=== PATIENT | female | born 1930 | race Caucasian/White ===

== ENCOUNTER 2016-12-13 14:37 | Emergency (ER) | payer MEDICARE, MEDICAID ==
[~2016-12-13] VITALS: Ht 149.9 cm; Wt 62.6 kg
--- NOTE | 2016-12-13 14:40 | NUR ---
BIB SON FROM HOME FOR EVALUATION DT SP FELL AROUND 1000 TODAY. PATIENT ARRIVED, AAO4. APPEARS IN NO APPARENT DISTRESS, HOWEVER PATIENT NOTED WITH LEFT EYE PAIN, 6/10, WITH PURPLISH DISCOLORATION. PATIENT IS UNABLE TO OPEN LEFT EYE DUE TO SWELLING. PATIENT'S SKIN IS WARM TO TOUCH AND NON DIAPHORETIC. PT IS AFEBRILE. VSS. GOWNED PT AND PLACED ON TELE MONITOR.
--- NOTE | 2016-12-13 14:48 | NUR ---
EKG IN PROGRESS
[2016-12-13 15:32] LABS: BASOPHILS % (AUTO) 0.3 % (0.0-2.0); EOSINOPHILS # (AUTO) 0.1 /CMM (0.0-0.7); EOSINOPHILS % (AUTO) 1.2 % (0.0-6.0); HEMATOCRIT 31 % (33-45); LYMPHOCYTES # (AUTO) 1.9 /CMM (0.8-4.8); LYMPHOCYTES % (AUTO) 31.8 % (20.0-44.0); MEAN CORPUSCULAR HEMOGLOBIN 27 PG (26.0-33.0); MEAN CORPUSCULAR HGB CONC 33 g/dl (31.0-36.0); MEAN CORPUSCULAR VOLUME 82 fL (82-100); MONOCYTES # (AUTO) 0.6 /CMM (0.1-1.30); MONOCYTES % (AUTO) 10.5 % (2.0-12.0); NEUTROPHILS # (AUTO) 3.4 /CMM (1.8-8.9); NEUTROPHILS % (AUTO) 56.2 % (43.0-81.0); PLATELET COUNT (AUTO) 227 /CMM (150-450); RDW COEFFICIENT OF VARIATION 13.4 (11.5-15.0); RED BLOOD CELL COUNT(AUTO) 3.74 MIL/uL (4.0-5.2)
--- NOTE | 2016-12-13 15:33 | NUR ---
PATIENT LEFT FOR CT WITH EMT, NO COMPLAINTS OR CHANGES OF CONDITION
[2016-12-13 15:45] LABS: CALCIUM, SERUM 9.4 mg/dL (8.5-10.1); CARBON DIOXIDE 27 mmol/L (21-32); CHLORIDE 104 mmol/L (98-107); GLUCOSE 151 mg/dL (74-106); POTASSIUM 4.4 mmol/L (3.5-5.1); SODIUM SERUM 139 mmol/L (136-145); UREA NITROGEN, BLOOD 34 mg/dL (7-18)
[2016-12-13 15:47] LABS: INR 0.92 (0.87-1.13); PROTHROMBIN TIME 9.6 SECS (9.5-12.7)
[2016-12-13 15:53] LABS: ALANINE AMINOTRANSFERASE 17 U/L (12-78); ALBUMIN 3.5 g/dL (3.4-5.0); ALKALINE PHOSPHATASE 45 U/L (46-116); ASPARTATE AMINOTRANSFERASE 15 U/L (15-37); BILIRUBIN,TOTAL 0.2 mg/dL (0.2-1.0)
[2016-12-13 16:17] VITALS: BP 12/72
--- NOTE | 2016-12-13 16:17 | NUR ---
Patient discharged to home in stable condition. Written and verbal after care instructions given. Patient verbalizes understanding of instruction.
== END 2016-12-13 16:17 | disposition home or self-care (01) ==
LOC: ER 14:41
DX: S05.12XA Contusion of eyeball and orbital tissues, left eye, initial encounter (principal); D64.9 Anemia, unspecified; D32.9 Benign neoplasm of meninges, unspecified; R39.2 Extrarenal uremia; I10 Essential (primary) hypertension; E11.8 Type 2 diabetes mellitus with unspecified complications; H54.42 Blindness, left eye, normal vision right eye; W01.10XA Fall on same level from slipping, tripping and stumbling with subsequent striking against unspecified object, initial encounter; Y93.89 Activity, other specified; Y92.89 Other specified places as the place of occurrence of the external cause; Y99.8 Other external cause status
CPT/HCPCS: 36415; 70450; 70486; 73030; 73110; 80048; 80076; 85025; 85730; 93005; 99285; A4606; Z7610

== ENCOUNTER 2017-01-29 19:14 | Emergency (ER) | payer MEDICARE, MEDICAID ==
[~2017-01-29] VITALS: Ht 152.4 cm; Wt 64.9 kg
--- NOTE | 2017-01-29 19:16 | NUR ---
86 YO FEMALE BB FAMILY. PT IS ALERT X 3, C/O CHEST PAIN. PT GOWNED, PLACED ON NETWORK FIREWALL ENGINEER. SKIN WARM AND DRY, RR EVEN AND UNLABORED. AWAITING ORDERS FROM PROVIDER AWAITING ORDERS FROM PROVIDER
--- NOTE | 2017-01-29 19:30 | NUR ---
20G RIGHT HAND IV STARTED, BLOOD SAMPLE OBTAINED AND SENT TO LAB
[2017-01-29 19:37] LABS: BASOPHILS % (AUTO) 0.6 % (0.0-2.0); EOSINOPHILS # (AUTO) 0.1 /CMM (0.0-0.7); EOSINOPHILS % (AUTO) 1.3 % (0.0-6.0); HEMATOCRIT 33 % (33-45); HEMOGLOBIN 11.1 g/dL (11.5-14.8); LYMPHOCYTES # (AUTO) 2.5 /CMM (0.8-4.8); LYMPHOCYTES % (AUTO) 37.8 % (20.0-44.0); MEAN CORPUSCULAR HEMOGLOBIN 28 PG (26.0-33.0); MEAN CORPUSCULAR HGB CONC 34 g/dl (31.0-36.0); MEAN CORPUSCULAR VOLUME 81 fL (82-100); MONOCYTES # (AUTO) 0.7 /CMM (0.1-1.30); MONOCYTES % (AUTO) 10.4 % (2.0-12.0); NEUTROPHILS # (AUTO) 3.4 /CMM (1.8-8.9); NEUTROPHILS % (AUTO) 49.9 % (43.0-81.0); PLATELET COUNT (AUTO) 246 /CMM (150-450); RDW COEFFICIENT OF VARIATION 14.4 (11.5-15.0); RED BLOOD CELL COUNT(AUTO) 4.01 MIL/uL (4.0-5.2); WHITE BLOOD COUNT (AUTO) 6.7 K/uL (4.3-11.0)
[2017-01-29] MEDS ORDERED: ONDANSETRON HCL/PF 4 MG/2 ML VIAL ONE (19:37)
[2017-01-29] MEDS ORDERED: MORPHINE SULFATE INJ 2 MG/ML DISP.SYRIN ONE (19:37)
[2017-01-29 19:43] LABS: CALCIUM, SERUM 9.3 mg/dL (8.5-10.1); CARBON DIOXIDE 24 mmol/L (21-32); CHLORIDE 104 mmol/L (98-107); CREATININE 1.2 mg/dL (0.6-1.3); GLUCOSE 68 mg/dL (74-106); POTASSIUM 4.4 mmol/L (3.5-5.1); SODIUM SERUM 137 mmol/L (136-145); UREA NITROGEN, BLOOD 35 mg/dL (7-18)
[2017-01-29 19:50] LABS: TROPONIN I < 0.017 ng/mL (0.00-0.056)
[2017-01-29 19:52] LABS: D-DIMER 0.56 mg/L(FEU (0.17-0.50); INR 0.93 (0.87-1.13); PROTHROMBIN TIME 9.9 SECS (9.5-12.7)
[2017-01-29 19:54] LABS: ALANINE AMINOTRANSFERASE 20 U/L (12-78); ALBUMIN 3.9 g/dL (3.4-5.0); ALKALINE PHOSPHATASE 50 U/L (46-116); ASPARTATE AMINOTRANSFERASE 18 U/L (15-37); B-TYPE NATRIURETIC PEPTIDE 171 PG/ML (0-125); BILIRUBIN,DIRECT 0.1 mg/dL (0.0-0.2); BILIRUBIN,TOTAL 0.3 mg/dL (0.2-1.0); TOTAL PROTEIN, SERUM 7.8 g/dL (6.4-8.2)
[2017-01-29] MEDS ORDERED: MORPHINE SULFATE INJ 2 MG/ML DISP.SYRIN IV ONE (20:00)
[2017-01-29] MEDS ORDERED: ONDANSETRON HCL/PF 4 MG/2 ML VIAL IVP ONE (20:00)
[2017-01-29] MEDS ORDERED: IV NS 0.9% 500 ML BAG IV ONE (20:00)
[2017-01-29] MEDS ORDERED: CT SWABBABLE VALVE TRANS SET 1 EA INFUS.SET MC ONE (20:38)
[2017-01-29] MEDS ORDERED: IOHEXOL-350 100 ML VIAL IV ONE (20:38)
[2017-01-29] MEDS ORDERED: IV NS 0.9% 250 ML IV ONE (20:38)
--- NOTE | 2017-01-29 21:02 | NUR ---
PT TRANSPORTED TO CT VIA GURNEY BY RADIOLOGY TEAM
[2017-01-29 22:04] VITALS: BP 116/65
--- NOTE | 2017-01-29 22:04 | NUR ---
Patient discharged to home in stable condition. Written and verbal after care instructions given. Patient verbalizes understanding of instruction.IV removed. Catheter intact and site benign. Pressure and 4x4 applied to site. No bleeding noted. PT ambulatory with a steady gait VITAL SIGNS WITHIN NORMAL LIMITS.
== END 2017-01-29 22:04 | disposition home or self-care (01) ==
LOC: ER 19:16
DX: R07.9 Chest pain, unspecified (principal); E11.9 Type 2 diabetes mellitus without complications; I10 Essential (primary) hypertension
CPT/HCPCS: 36415; 71010-TC; 80048-TC; 80076-TC; 83880; 84484-TC; 85025-TC; 85378-TC; 85730-TC; A4606; J2270; J2405; J7040; J7050; Q9967; Z7610

== ENCOUNTER 2018-11-05 16:26 | Outpatient (CLI) | payer MEDICARE, MEDICAID ==
[2018-11-05] MEDS ORDERED: IOHEXOL-300 100 ML VIAL IV ONE (16:42)
== END 2018-11-05 23:59 | disposition home or self-care (01) ==
LOC: CT 16:26
DX: K86.2 Cyst of pancreas (principal); K76.0 Fatty (change of) liver, not elsewhere classified; N85.8 Other specified noninflammatory disorders of uterus; R19.5 Other fecal abnormalities; I70.8 Atherosclerosis of other arteries; M47.817 Spondylosis without myelopathy or radiculopathy, lumbosacral region
CPT/HCPCS: 74177; Q9967

== ENCOUNTER 2020-02-15 15:25 | Emergency (ER) | payer MEDICARE, OTHER ==
[~2020-02-15] VITALS: Ht 149.9 cm; Wt 59.0 kg
[2020-02-15 15:25] VITALS: BP 148/73
--- NOTE | 2020-02-15 16:02 | NUR ---
patient is mother of our Julien EMT ,c/c constipation prep for rectal exam by Dr. Beyer , keep patient clean and dry
--- NOTE | 2020-02-15 16:24 | NUR ---
Patient discharged to home in stable condition. Written and verbal after care instructions given. Patient verbalizes understanding of instruction.
== END 2020-02-15 16:24 | disposition home or self-care (01) ==
LOC: ER 15:38
DX: K59.00 Constipation, unspecified (principal); I10 Essential (primary) hypertension; E11.9 Type 2 diabetes mellitus without complications; Z98.890 Other specified postprocedural states

== ENCOUNTER 2020-05-28 13:39 | Emergency (ER) | payer MEDICARE, OTHER ==
[~2020-05-28] VITALS: Ht 149.9 cm; Wt 61.2 kg
--- NOTE | 2020-05-28 14:05 | NUR ---
PT BIB SON C/O ABD PAIN 5/10 ALSO COMPLAINS OF CONSTIPATION. VS CHECKED. AWAITING MD MENDOZA.
[2020-05-28] MEDS ORDERED: MINERAL OIL 133 ML (PYXIS) 1 EA ENEMA RC ONE (14:06)
[2020-05-28] MEDS ORDERED: LACTULOSE 10 G/15 ML UDC (PYXIS) ONE ×2 (14:06→14:07)
[2020-05-28] MEDS: LACTULOSE 10 G/15 ML UDC (PYXIS) PO ONE (14:15)
[2020-05-28] MEDS: MINERAL OIL 133 ML (PYXIS) 1 EA ENEMA RC ONE (14:15)
--- NOTE | 2020-05-28 14:15 | NUR ---
MEDS ADMINISTERED ORDERED.
[2020-05-28] MEDS ORDERED: HYDR-3980 PO (14:32)
[2020-05-28] MEDS ORDERED: FERR325T24 PO (14:32)
[2020-05-28] MEDS ORDERED: ONDA-97 PO (14:32)
[2020-05-28] MEDS ORDERED: OMEP40CA13 PO (14:32)
[2020-05-28] MEDS ORDERED: METF-441 PO (14:32)
[2020-05-28] MEDS ORDERED: GABA300C PO (14:32)
[2020-05-28] MEDS ORDERED: GLIM4TAB37 PO (14:32)
[2020-05-28] MEDS ORDERED: SITA100T PO (14:32)
[2020-05-28] MEDS ORDERED: LOSA1TAB36 PO (14:32)
[2020-05-28] MEDS ORDERED: FURO20TA4 PO (14:32)
--- NOTE | 2020-05-28 14:35 | NUR ---
PATIENT HAD A LARGE BOWEL MOVEMENT. PERICARE PROVIDED.
--- NOTE | 2020-05-28 16:12 | NUR ---
PT FEELING MUCH BETTER. DISCHARGE HOME W/ FAMILY IN STABLE CONDITION.
[2020-05-28 16:13] VITALS: BP 122/74
[2020-05-30] MEDS ORDERED: DORZ10DR11 EACHEYE (15:27)
== END 2020-05-28 16:14 | disposition home or self-care (01) ==
LOC: ER 13:52
DX: K59.00 Constipation, unspecified (principal); K62.89 Other specified diseases of anus and rectum; I10 Essential (primary) hypertension; E11.9 Type 2 diabetes mellitus without complications; Z98.890 Other specified postprocedural states; Z79.899 Other long term (current) drug therapy; Z79.84 Long term (current) use of oral hypoglycemic drugs

== ENCOUNTER 2020-05-30 14:33 | Inpatient (IN) | payer MEDICARE, OTHER ==
[~2020-05-30] VITALS: Ht 144.8 cm; Wt 53.5 kg
[~2020-05-30 14:33] MED LIST: FERR325T24 PO; FURO20TA4 PO; GABA300C PO; GLIM4TAB37 PO; HYDR-3980 PO; LOSA1TAB36 PO; METF-441 PO; OMEP40CA13 PO; ONDA-97 PO; SITA100T PO
--- NOTE | 2020-05-30 14:51 | NUR ---
PT SEEN AND EXAMINED BY .
--- NOTE | 2020-05-30 15:05 | NUR ---
IV LINE ESTABLISHED BLOOD DRAWN AND SENT TO LAB.
[2020-05-30] MEDS ORDERED: DORZ10DR11 RIGHTEYE (15:27)
[2020-05-30] MEDS ORDERED: MEGE40TA5 PO (15:27)
[2020-05-30] MEDS ORDERED: PRED5DRO17 LEFTEYE (15:27)
[2020-05-30] MEDS ORDERED: IV NS 0.9% 500 ML BAG IV ONE ×2 (15:30→17:00)
--- NOTE | 2020-05-30 15:40 | NUR ---
URINE SPECIMEN COLLECTED AND SENT TO LAB.
[2020-05-30 15:46] LABS: CALCIUM, SERUM 8.9 mg/dL (8.5-10.1); CARBON DIOXIDE 20 mmol/L (21-32); CHLORIDE 106 mmol/L (98-107); CREATININE 2.2 mg/dL (0.6-1.3); GLUCOSE 217 mg/dL (74-106); POTASSIUM 4.2 mmol/L (3.5-5.1); SODIUM SERUM 140 mmol/L (136-145); UREA NITROGEN, BLOOD 70 mg/dL (7-18)
[2020-05-30 15:53] LABS: ALANINE AMINOTRANSFERASE 12 U/L (12-78); ALBUMIN 3.3 g/dL (3.4-5.0); ALKALINE PHOSPHATASE 45 U/L (46-116); ASPARTATE AMINOTRANSFERASE 11 U/L (15-37); BASOPHILS % (AUTO) 0.2 % (0.0-2.0); BILIRUBIN,TOTAL 0.2 mg/dL (0.2-1.0); EOSINOPHILS % (AUTO) 0.7 % (0.0-6.0); HEMATOCRIT 27 % (33-45); HEMOGLOBIN 8.8 g/dL (11.5-14.8); LYMPHOCYTES # (AUTO) 1.8 /CMM (0.8-4.8); LYMPHOCYTES % (AUTO) 23.9 % (20.0-44.0); MEAN CORPUSCULAR HGB CONC 32 g/dl (31.0-36.0); MEAN CORPUSCULAR VOLUME 92 fL (82-100); MONOCYTES # (AUTO) 0.8 /CMM (0.1-1.30); MONOCYTES % (AUTO) 10.4 % (2.0-12.0); NEUTROPHILS # (AUTO) 4.8 /CMM (1.8-8.9); NEUTROPHILS % (AUTO) 64.8 % (43.0-81.0); PLATELET COUNT (AUTO) 276 /CMM (150-450); RED BLOOD CELL COUNT(AUTO) 2.96 MIL/uL (4.0-5.2); TOTAL PROTEIN, SERUM 7.2 g/dL (6.4-8.2); WHITE BLOOD COUNT (AUTO) 7.4 K/uL (4.3-11.0)
[2020-05-30 16:10] LABS: COLOR,URINE BROWN (YELLOW)
[2020-05-30 16:14] LABS: BACTERIA,URINE 4+ /HPF (None Seen); RBC,URINE TOO NUMEROUS TO COUN /HPF (0-2); SQUAMOUS EPITHELIAL CELL,UR 0-2 /HPF (None Seen); WBC,URINE 81-100 /HPF (0-3)
[2020-05-30] MEDS ORDERED: CEFTRIAXONE 1GM BAG (ER ONLY) 50 ML IV ONE (16:26)
[2020-05-30] MEDS ORDERED: CEFTRIAXONE 1 G in IV D5W 50 ML IV ONE (16:30)
--- NOTE | 2020-05-30 16:35 | NUR ---
NURSING SUP GAVE M/S BED 104-1.
--- NOTE | 2020-05-30 17:00 | NUR ---
PAGED [facility].
--- NOTE | 2020-05-30 17:13 | NUR ---
COVID SPECIMEN OBTAINED AND SENT TO LAB.
[2020-05-30] MEDS ORDERED: TYLENOL COD PO (17:38)
--- NOTE | 2020-05-30 17:44 | NUR ---
REPORT GIVEN TO ROBBY FOURNIER FOR JONAS.
[2020-05-30] MEDS ORDERED: MAGNESIUM HYDROXIDE 30 ML UDC PO PRN (18:00)
[2020-05-30] MEDS ORDERED: Z GUARD REMEDY 2 OZ OINT TP PRN (18:00)
[2020-05-30] MEDS ORDERED: ONDANSETRON HCL/PF 4 MG/2 ML VIAL IVP PRN (18:00)
[2020-05-30] MEDS ORDERED: MAG HYDROX/AL HYDROX/SIMETH 30 ML UDC PO PRN (18:00)
[2020-05-30] MEDS ORDERED: ACETAMINOPHEN 325 MG TABLET PO PRN (18:00)
--- NOTE | 2020-05-30 18:34 | NUR ---
AT BEDSIDE FOR EVAL.
--- NOTE | 2020-05-30 18:54 | NUR ---
RECEIVED PATIENT FROM ER. PATIENT COMFORTABLE IN BED AT THIS TIME, SAFETY MEASURES IMPLEMENTED, BED IN LOWEST POSITION, LOCKED, SIDE RAILS UP, CALL LIGHT WITHIN REACH. ENDORSED TO ROBBY GONZALEZ FOR CONTINUITY OF CARE. WILL GIVE REPORT TO ONCOMING RN TO COMPLETE ADMISSION AND CONTINUE CARE.
[2020-05-30 20:00] VITALS: BP 159/76
--- NOTE | 2020-05-30 20:00 | NUR ---
MS NOTE RECEIVED PT IN BED, BREATHING EVEN AND UNLABORED WITH NO SOB OR ACUTE DISTRESS NOTED. A/OX2 . DENIES ANY PAIN OR DISCOMFORT. RFA IV SITE PATENT. BED IN LOWEST POSITION. CALL LIGHT WITHIN REACH. SRX2 UP. ALL NEEDS RENDERED.
[2020-05-30] MEDS: IV NS 0.9% 1,000 ML IV PRN (20:09)
--- NOTE | 2020-05-30 20:23 | NUR ---
MS ATTENDANT CHILD ACTIVITY NOTE ADMITTED A 89YR OLD PT. FULL CODE.NKA. ADMITTING DIAGNOSIS OF UTI. PMH OF LEFT EYE BLINDNESS, DM, HTN, OSTEOARTHRITIS, CONSTIPATION AND SPINAL STENOSIS. PT A/0 X2. FARSI SPEAKING. SON BY BEDSIDE. BREATHING EVEN AND UNLABORED WITH NO SOB OR ACUTE DISTRESS NOTED. RFA 18 IV PATENT AND INTACT. IV FLUIDS INFUSING WELL. KEPT CLEAN AND DRY. ALL NEEDS RENDERED. SRX2 UP. BED IN LOWEST POSITION. WILL CONTINUE TO MONITOR.
--- NOTE | 2020-05-30 21:30 | NUR ---
ms rn note Called MD to inform about vte score of 3. awaiting call back.
--- NOTE | 2020-05-31 00:16 | NUR ---
MS RN NOTE ASKED SON IF PT EVER GOT HER FLU VACCINE AND PNA VACCINE. PER SON, PT RECEIVED IT LAST YEAR. ASKED IF HE WANTED NURSE TO GIVE THEM, SON STATED, HE WILL ASK PT IN AM.
[2020-05-31] MEDS: ZOLPIDEM TARTRATE 5 MG TABLET PO PRN ×2 (01:01→20:48)
[2020-05-31 04:00] VITALS: BP 180/85
[2020-05-31 05:54] LABS: BASOPHILS % (AUTO) 0.2 % (0.0-2.0); EOSINOPHILS % (AUTO) 0.6 % (0.0-6.0); HEMATOCRIT 27 % (33-45); HEMOGLOBIN 8.6 g/dL (11.5-14.8); LYMPHOCYTES # (AUTO) 1.9 /CMM (0.8-4.8); LYMPHOCYTES % (AUTO) 25.4 % (20.0-44.0); MEAN CORPUSCULAR HGB CONC 32 g/dl (31.0-36.0); MEAN CORPUSCULAR VOLUME 92 fL (82-100); MONOCYTES # (AUTO) 0.7 /CMM (0.1-1.30); MONOCYTES % (AUTO) 9.8 % (2.0-12.0); NEUTROPHILS # (AUTO) 4.9 /CMM (1.8-8.9); PLATELET COUNT (AUTO) 235 /CMM (150-450); WHITE BLOOD COUNT (AUTO) 7.6 K/uL (4.3-11.0)
--- NOTE | 2020-05-31 05:59 | NUR ---
MS RN NOTE PATIENT NOTED WITH 181/[address] JUDGE. LEFT A MESSAGE. AWAITING CALL BACK.
--- NOTE | 2020-05-31 06:05 | NUR ---
MS RN NOTE PATIENT NOTED TO BE MOANING AND COMPLAINING OF PAIN. PT UNABLE TO RATE PAIN. OFFERED PAIN MEDICATION. PT REFUSE TO TAKE PAIN MEDICATION. SON BY BEDSIDE AND EXPLAINED USE OF PAIN MEDICATION. PT AGREED TO HAVE PAIN MEDICATION.
[2020-05-31 06:12] LABS: ALANINE AMINOTRANSFERASE 11 U/L (12-78); ALKALINE PHOSPHATASE 42 U/L (46-116); ASPARTATE AMINOTRANSFERASE 10 U/L (15-37); BILIRUBIN,TOTAL 0.2 mg/dL (0.2-1.0); CALCIUM, SERUM 8.3 mg/dL (8.5-10.1); CARBON DIOXIDE 22 mmol/L (21-32); CHLORIDE 110 mmol/L (98-107); CREATININE 1.5 mg/dL (0.6-1.3); GLUCOSE 60 mg/dL (74-106); MAGNESIUM 1.7 mg/dL (1.8-2.4); PHOSPHORUS 1.9 mg/dL (2.5-4.9); POTASSIUM 3.5 mmol/L (3.5-5.1); SODIUM SERUM 144 mmol/L (136-145); TOTAL PROTEIN, SERUM 6.5 g/dL (6.4-8.2); UREA NITROGEN, BLOOD 55 mg/dL (7-18)
[2020-05-31 06:14] LABS: CHOLESTEROL 125 mg/dL (<200); HDL CHOLESTEROL 29 mg/dL (40-60); LDL 68 mg/dL (0-99); TRIGLYCERIDES 194 mg/dL (30-150)
[2020-05-31] MEDS: HYDROCODONE/APAP 5/325MG TABLET PO PRN (06:31)
--- NOTE | 2020-05-31 06:36 | NUR ---
MS RN CLOSING NOTE PT IN BED. BREATHING EVEN AND UNLABORED WITH NO SOB OR ACUTE DISTRESS NOTED. PT MOANING OF PAIN WHEN URINATING. HEMATURIA NOTED. PRN NORCO 5/325MG GIVEN. OFFERED ADEQUATE FLUIDS TO PATIENT. PT KEPT CLEAN AND DRY. ALL NEEDS RENDERED. RFA IV PATENT AND INTACT. IV FLUIDS INFUSING WELL. SRX2 UP. CALL LIGHT WITHIN REACH. WILL ENDORSE TO AM NURSE FOR CONTINUITY OF CARE.
--- NOTE | 2020-05-31 07:12 | NUR ---
PT RECEIVED IN BED, ON RA, O2 SATURATION 98%. NO SOB OR RESPIRATORY DISTRESS. PT A/OX3, FARSI SPEAKING. PT WEARS DIAPER, SACRAL WOUND WITH MEPILEX. PER PT SON, PT IS AMBULATORY WITH ASSIST. PT ABLE ON CONSISTENT CARB DIET. PT HAS RFA 18 CURRENTLY INFUSING NS @ 80 ML/HR. BED IN LOCKED LOWEST POSITION, CALL LIGHT WITHIN REACH. ALL SAFETY MEASURES IN PLACE. WILL CONTINUE TO MONITOR CLOSELY
[2020-05-31 08:00] VITALS: BP 156/66
--- NOTE | 2020-05-31 08:22 | NUR ---
WOUND CARE CONSULT: PT PRESENTS WITH STAGE 3 SACRAL ULCER, PRESENT ON ADMISSION. PT NOTED TO BE INCONTINENT OF URINE WITH PINK/RED COLOR ON EXTRASORB PAD. RECOMMENDATIONS MADE FOR SKIN PROTECTION AND WOUND CARE. DR SAMEER ROSALES NOTIFIED OF SURGICAL CONSULT REQUEST. DISCUSSED WITH NURSING STAFF AND CANDLE MAKER. PT IS ON [facility] [facility] BED. IN AGREEMENT WITH PLAN OF CARE. Addendum: 05/31/20 at 0825 by ARIANA RAMSEY WNDNU Amended: Links added.
[2020-05-31] MEDS ORDERED: HYDROGEL DRESSING 90 GM TUBE TP PRN (08:30)
--- NOTE | 2020-05-31 08:35 | NUR ---
US OF BLADDER COMPLETE, 1.2 L REPORTED. DERDERIAN NOTIFIED FACE TO FACE OF RESULTS AND SACRAL WOUND, SACRAL STAGE 3. MD BAUGHIAN ORDERS CATHETER INSERTION, CONTINUE ROCEPHIN ABX, AND F/U WITH URINE CULTURES.
--- NOTE | 2020-05-31 08:37 | NUR ---
MD ANDERSON NOTIFIED OF HGB 8.6, HCT 27, NO NEW ORDERS AT THIS TIME.
--- NOTE | 2020-05-31 09:14 | NUR ---
PT SON LOYDA NOTIFIED OF NEED FOR INSERTION. LOYDA TRANSLATED NEED TO PT. INSERTED BY ROBBY DORMAN, PER PT REQUEST.
[2020-05-31] MEDS: IV NS 0.9% 1,000 ML IV PRN ×2 (09:25→23:39)
--- NOTE | 2020-05-31 09:35 | NUR ---
UA SAMPLE OBTAINED, AWAITING LAB PROCESSING. URINE IS TEA-COLORED
[2020-05-31] MEDS ORDERED: Magnesium 1GM/D5W 100ML PREMIX 100 ML IV SCH (10:30)
--- NOTE | 2020-05-31 10:38 | NUR ---
1500 ML DARK RED/BROWN BLOOD-TINGED URINE WITH CLOTS DRAINED THROUGH . MD MONICA RAMIREZ, AWAITING RESPONSE
--- NOTE | 2020-05-31 11:04 | NUR ---
MD ANDERSON NOTIFIED OF BLOOD-TINGED URINE, NO FURTHER ORDERS AT THIS TIME. MD ANDERSON STATED HE IS TO COMPLETE MED RECON FOR HOME DM AND HTN MEDICATIONS
[2020-05-31] MEDS: HYDROGEL DRESSING 90 GM TUBE TP SCH (11:23)
[2020-05-31] MEDS ORDERED: K PHOS NEUTRAL 250 MG TABLET PO ONE (11:30)
[2020-05-31 11:51] LABS: CREATININE, URINE 24.8 MG/DL (30.0-125.0); URINE TOTAL PROTEIN 192.9 mg/dL (0-11.9)
[2020-05-31 12:07] LABS: BILIRUBIN,URINE MODERATE (NEGATIVE); BLOOD, URINE LARGE Ery/uL (NEGATIVE); COLOR,URINE DARK YELLOW (YELLOW); LEUKOCYTE ESTERASE ,URINE NEGATIVE (NEGATIVE); NITRITE, URINE POSITIVE (NEGATIVE); PROTEIN,URINE 100 mg/dl (NEGATIVE); UGLUCOSE NEGATIVE (NEGATIVE); UROBILINOGEN,URINE 0.2 EU/dL (0.2)
[2020-05-31 12:18] LABS: PH,URINE >9.0 (5.0-8.0)
[2020-05-31 13:32] LABS: BACTERIA,URINE Many /HPF (None Seen); RBC,URINE 81-100 /HPF (0-2); SQUAMOUS EPITHELIAL CELL,UR Few /HPF (None Seen); WBC,URINE 0-2 /HPF (0-3)
--- NOTE | 2020-05-31 15:00 | NUR ---
MD ANDERSON PAGED FOR MED RECON
[2020-05-31 15:15] LABS: EOSINOPHIL,URINE None Seen
[2020-05-31] MEDS: CEFTRIAXONE 1 G in IV D5W 50 ML IV SCH (15:30)
[2020-05-31 16:00] VITALS: BP 138/58
--- NOTE | 2020-05-31 16:30 | NUR ---
AWAITING DVT PUMPS REQUESTED FROM [facility]
--- NOTE | 2020-05-31 16:32 | NUR ---
SACRAL WOUND TX COMPLETE DIRECTED
[2020-05-31] MEDS ORDERED: POLYETHYLENE GLYCOL 3350 17 GM POWD.PACK PO PRN (17:00)
--- NOTE | 2020-05-31 17:04 | NUR ---
PT OSMEL SCALES AT BEDSIDE
[2020-05-31] MEDS: DOCUSATE SODIUM 100 MG CAPSULE PO SCH (17:25)
--- NOTE | 2020-05-31 17:54 | NUR ---
PT SON LOYDA ASKED IF HE WANTS THE PT TO HAVE THE FLU SHOT AND THE PNA VACCINE. LOYDA STATED HE WILL ASK HIS FAMILY AT A LATER TIME. RN TO ENDORSE FOLLOW-UP WITH ONCOMING RN
--- NOTE | 2020-05-31 18:42 | NUR ---
PT REMAINS IN BED, ALERT AND ORIENTED X 4, FARSI-SPEAKING. PT ON RA O2 SATURATION 96%, NO RESPIRATORY DISTRESS OR SOB. PT SON LOYDA AT BEDSIDE. PT HAS , INSERTED THIS AM, DRAINING 2350 ML DARK RED BLOOD-TINGED URINE WITH BLOOD CLOTS. NO BM TODAY, COLACE GIVEN ORDERED. PT HAS STAGE 3 PRESSURE INJURY, WOUND TX COMPLETED DIRECTED. PT HAS RFA #18 G RUNNING NS @ 80 ML/HOUR. NO SIGNS OF INFECTION OR INFILTRATION. PT ON CONSISTENT CARB DIET, INDEPENDENT WITH FEEDING. BED IN LOCKED LOWEST POSITION, CALL LIGHT WITHIN REACH, ALL SAFETY MEASURES IN PLACE. REPORT GIVEN TO ROBBY BIRD FOR JONAS.
--- NOTE | 2020-05-31 19:00 | NUR ---
MS RN NOTE RECEIVED PT IN BED. A/0 X2. FARSI SPEAKING. BREATHING EVEN AND UNLABORED WITH NO SOB OR ACUTE DISTRESS NOTED. DENIES ANY PAIN OR DISCOMFORT. RFA IV SITE PATENT AND INTACT. IV FLUIDS INFUSING WELL. CATH IN PLACE. HEMATURIA NOTED. KEPT CLEAN AND DRY. ALL NEEDS RENDERED. REPOSITIONED. CALL LIGHT WITHIN REACH. BED IN LOWEST POSITION. WILL CONTINUE TO MONITOR.
[2020-05-31] MEDS ORDERED: TIMOLOL MAL/DORZOLAM HCL OPHTH 10 ML BOTTLE EACHEYE SCH (19:30)
[2020-05-31] MEDS ORDERED: FUROSEMIDE 20 MG TABLET PO PRN (19:30)
[2020-05-31] MEDS ORDERED: ONDANSETRON 4 MG TAB.RAPDIS PO PRN (19:30)
[2020-05-31] MEDS: GLIMEPIRIDE 4 MG TABLET PO SCH (19:53)
[2020-05-31] MEDS: FERROUS SULFATE (325 MG) 325 MG/TAB TABLET PO SCH (19:53)
[2020-05-31] MEDS: METFORMIN 850 MG TABLET PO SCH (19:53)
[2020-05-31] MEDS: MEGESTROL ACETATE 40 MG TABLET PO SCH (19:54)
[2020-05-31] MEDS: LOSARTAN/HCTZ 50-12.5MG/ 1 EA TABLET PO SCH (19:59)
[2020-05-31 20:00] VITALS: BP 130/64
--- NOTE | 2020-05-31 20:30 | NUR ---
MS RN NOTE BLOOD PRESSURE NOTED AT 162/82 AT 1930. HYAAR 50-12.5MG GIVEN ORDERED. BLOOD PRESSURE RECHECKED BP NOTED AT 130/64.
--- NOTE | 2020-05-31 21:00 | NUR ---
MS RN NOTE SPOKE WITH DR. JUDGE TO OBTAIN ORDER FOR ACCUCHECK. NEW ORDER NOTED FOR ACCUCHECK Q6H WITHOUT SLIDING SCALE.NOTED AND CARRIED OUT. ALSO MENTIONED ABOUT VTE SCORE OF 3, ASKED IF SON LOYDA IS OK WITH ANTICOAGULANT MEDICATION. PER LOYDA, DVT PUMP IS GOOD ENOUGH FOR HER MOTHER.
[2020-05-31] MEDS: GABAPENTIN 300 MG CAPSULE PO SCH (22:05)
[2020-05-31] MEDS: BLOOD SUGAR DIAGNOSTIC 1 EACH STRIP IN SCH (23:18)
[2020-06-01 04:00] VITALS: BP 153/75
--- NOTE | 2020-06-01 05:20 | NUR ---
ms rn note Blood sugar checked and noted at 35. Pt awake and responsive. A/O x2. Pt given 8oz orange juice for hypoglycemia. Paged Dr. Menard to make aware and obtained order for D5 IV push PRN and random glucose. New order noted and carried out. Addendum: 06/01/20 at 0602 by MARGE LONG RN clarification of order: 50% Dextrose injection.
[2020-06-01 05:31] LABS: BASOPHILS % (AUTO) 0.4 % (0.0-2.0); EOSINOPHILS % (AUTO) 2.2 % (0.0-6.0); HEMATOCRIT 26 % (33-45); HEMOGLOBIN 8.3 g/dL (11.5-14.8); LYMPHOCYTES # (AUTO) 1.6 /CMM (0.8-4.8); LYMPHOCYTES % (AUTO) 24.5 % (20.0-44.0); MEAN CORPUSCULAR HGB CONC 32 g/dl (31.0-36.0); MEAN CORPUSCULAR VOLUME 91 fL (82-100); MONOCYTES # (AUTO) 0.7 /CMM (0.1-1.30); MONOCYTES % (AUTO) 10.2 % (2.0-12.0); NEUTROPHILS # (AUTO) 4.2 /CMM (1.8-8.9); NEUTROPHILS % (AUTO) 62.7 % (43.0-81.0); PLATELET COUNT (AUTO) 212 /CMM (150-450); WHITE BLOOD COUNT (AUTO) 6.7 K/uL (4.3-11.0)
[2020-06-01 05:42] LABS: ALANINE AMINOTRANSFERASE 10 U/L (12-78); ALBUMIN 2.8 g/dL (3.4-5.0); ALKALINE PHOSPHATASE 42 U/L (46-116); ASPARTATE AMINOTRANSFERASE 9 U/L (15-37); BILIRUBIN,TOTAL 0.2 mg/dL (0.2-1.0); CALCIUM, SERUM 8.3 mg/dL (8.5-10.1); CARBON DIOXIDE 23 mmol/L (21-32); CHLORIDE 112 mmol/L (98-107); CREATININE 1.2 mg/dL (0.6-1.3); GLUCOSE 55 mg/dL (74-106); MAGNESIUM 1.9 mg/dL (1.8-2.4); PHOSPHORUS 3.2 mg/dL (2.5-4.9); POTASSIUM 3.3 mmol/L (3.5-5.1); SODIUM SERUM 145 mmol/L (136-145); TOTAL PROTEIN, SERUM 6.2 g/dL (6.4-8.2); UREA NITROGEN, BLOOD 37 mg/dL (7-18)
[2020-06-01 05:43] LABS: CREATINE KINASE, TOTAL 22 U/L (26-192)
--- NOTE | 2020-06-01 05:50 | NUR ---
ms rn note random blood glucose level at 55. PRN D50 injection given. Will continue to monitor.
[2020-06-01] MEDS ORDERED: DEXTROSE 50%-WATER 50 ML DISP.SYRIN IVP PRN (06:00)
[2020-06-01] MEDS: BLOOD SUGAR DIAGNOSTIC 1 EACH STRIP IN SCH ×2 (06:06→12:01)
--- NOTE | 2020-06-01 06:29 | NUR ---
MS RN NOTE PT IN BED, AWAKE ALERT AND ORIENTED X2. BREATHING EVEN AND UNLABORED WITH NO SOB OR ACUTE DISTRESS NOTED IN RA. DENIES ANY PAIN. BLOOD GLUCOSE REASSESSED, 220 NOTED ,AFTER D50 INJECTION GIVEN FOR RANDOM BLOOD GLUCOSE OF 55. KEPT CLEAN AND DRY. REPOSITIONED. ALL NEEDS RENDERED. SRX2 UP. BED IN LOWEST POSITION. WILL ENDORSE TO AM NURSE FOR CONTINUITY OF CARE.
--- NOTE | 2020-06-01 07:15 | NUR ---
RN OPENING NOTE Received patient asleep in bed appears calm and relaxed. No signs of distress. On room air tolerating well. o2 sat at 96%. Patient is AO x3 Farsi speaking. Son works here in the hosp able to translate. Patient on FC draining brown urine. Hematuria previously reported. RFA #18 running NS @80ml/hr no signs of infiltrate. Safety measures maintained. Call light within reach. Bed locked and on lowest position. Will cont to monitor.
[2020-06-01 08:00] VITALS: BP 161/79
--- NOTE | 2020-06-01 08:15 | NUR ---
glucophage 850mg out of stock in both [facility]. informed pharmacy.
[2020-06-01] MEDS: LOSARTAN/HCTZ 50-12.5MG/ 1 EA TABLET PO SCH (09:06)
[2020-06-01] MEDS: LINAGLIPTIN 5 MG TABLET PO SCH (09:07)
[2020-06-01] MEDS: MEGESTROL ACETATE 40 MG TABLET PO SCH (09:07)
[2020-06-01] MEDS: GLIMEPIRIDE 4 MG TABLET PO SCH ×2 (09:07→17:12)
[2020-06-01] MEDS: DOCUSATE SODIUM 100 MG CAPSULE PO SCH ×2 (09:07→17:12)
[2020-06-01] MEDS: FERROUS SULFATE (325 MG) 325 MG/TAB TABLET PO SCH (09:07)
[2020-06-01] MEDS: prednisoLONE ACETATE 1% SUSP 5 ML BOTTLE LEFTEYE SCH (09:08)
[2020-06-01] MEDS: HYDROCODONE/APAP 5/325MG TABLET PO PRN ×3 (09:08→21:34)
[2020-06-01] MEDS: METFORMIN 850 MG TABLET PO SCH ×3 (09:08→17:57)
[2020-06-01] MEDS: TIMOLOL MAL/DORZOLAM HCL OPHTH 10 ML BOTTLE RIGHTEYE SCH ×2 (09:24→17:12)
[2020-06-01] MEDS ORDERED: POTASSIUM CHLORIDE 20 MEQ TAB.PRT.SR PO SCH (09:30)
[2020-06-01] MEDS: HYDROGEL DRESSING 90 GM TUBE TP SCH (09:31)
--- NOTE | 2020-06-01 12:07 | NUR ---
PATIENT'S BLOOD SUGAR WAS 417. REPEATED PER PROTOCOL. 315. INFORMED ALEJANDRA AWAITING RESPONSE.
[2020-06-01] MEDS: IV NS 0.9% 1,000 ML IV PRN (12:18)
--- NOTE | 2020-06-01 13:24 | NUR ---
SW attempted to meet with the patient at bedside. Patient is Farsi speaking. Patient was able to verbalize that patient's son Julien works in ED. SW to follow-up with patient's son Julien. SW remains available for all needs regarding this patient.
--- NOTE | 2020-06-01 14:34 | NUR ---
SHIRA met with patient's son Julien. Julien reported to this SW that the patient has IHSS and IHSS caregiver is aware of the wound. Julien reports that this is an ongoing wound as patient is bed bound. SHIRA will follow-up with Julien to provide more information. SW will provide additional resources regarding additional home health resources for the patient. SW remains available for all needs regarding this information.
--- NOTE | 2020-06-01 15:07 | NUR ---
FLU/PNA VACCINE UPDATE: LOYDA WILL GET BACK TO US REGARDING VACCINATION
[2020-06-01] MEDS: CEFTRIAXONE 1 G in IV D5W 50 ML IV SCH (15:10)
[2020-06-01] MEDS ORDERED: *INSULIN REGULAR(HUMULIN R)HUM 100 UNIT/ML VIAL SQ PRN (15:30)
[2020-06-01] MEDS ORDERED: INSULIN REGULAR, HUMAN 100 UNIT/ML 3 ML VIAL SQ PRN (15:30)
[2020-06-01] MEDS ORDERED: DEXTROSE 50%-WATER 50 ML DISP.SYRIN IV PRN (15:30)
[2020-06-01 16:00] VITALS: BP 143/120
[2020-06-01] MEDS: BLOOD SUGAR DIAGNOSTIC 1 EACH STRIP VI SCH ×2 (17:47→21:47)
[2020-06-01] MEDS ORDERED: FOSFOMYCIN TROMETHAMINE 3 G/PKT PACKET PO ONE (18:30)
--- NOTE | 2020-06-01 18:57 | NUR ---
RN CLOSING NOTE Patient asleep in bed no signs of distress. On room air tolerating well. Patient is AO x3-4 Farsi Speaking verbally responsive. Has BREANNA Midline running NS @ 80 ml/hr. Miranda catheter in place draining brown to dark red urine. Continue on IV antibiotics. No signs of adverse reaction to medications. All due meds given. Vital signs within normal limits. No co pain or discomfort. Safety measures maintained. Call light within reach. Will endorse to shift foreman nurse for louis.
--- NOTE | 2020-06-01 19:40 | NUR ---
RN OPENING NOTES, Patient in bed awake, AO x3-4 Farsi Speaking, at room air breathing even an unlabored, no sob/acute distress noted, s/s of an BREANNA Midline running patent and intact, in fusing 0.9% NS @ 80 ml/hr, patient tolerated well, urban catheter in place draining brown to dark red urine, patency intact, No co pain or discomfort, safety measures maintained, Call light within reach, will continue to monitor closely.
[2020-06-01 20:00] VITALS: BP 147/56
[2020-06-01] MEDS: AMOXICILLIN TRIHYDRATE 250 MG CAPSULE PO SCH (20:51)
[2020-06-01] MEDS: GABAPENTIN 300 MG CAPSULE PO SCH (21:18)
[2020-06-01] MEDS: ZOLPIDEM TARTRATE 5 MG TABLET PO PRN (21:34)
[2020-06-02] MEDS: HYDROCODONE/APAP 5/325MG TABLET PO PRN ×3 (03:42→21:22)
[2020-06-02 04:00] VITALS: BP 155/54
[2020-06-02] MEDS: AMOXICILLIN TRIHYDRATE 250 MG CAPSULE PO SCH ×3 (04:55→21:23)
[2020-06-02 06:05] LABS: BASOPHILS % (AUTO) 0.2 % (0.0-2.0); EOSINOPHILS % (AUTO) 2.4 % (0.0-6.0); HEMATOCRIT 25 % (33-45); LYMPHOCYTES # (AUTO) 2.2 /CMM (0.8-4.8); LYMPHOCYTES % (AUTO) 28.2 % (20.0-44.0); MEAN CORPUSCULAR HGB CONC 33 g/dl (31.0-36.0); MEAN CORPUSCULAR VOLUME 91 fL (82-100); MONOCYTES # (AUTO) 0.8 /CMM (0.1-1.30); NEUTROPHILS # (AUTO) 4.5 /CMM (1.8-8.9); NEUTROPHILS % (AUTO) 59.2 % (43.0-81.0); PLATELET COUNT (AUTO) 178 /CMM (150-450); RED BLOOD CELL COUNT(AUTO) 2.69 MIL/uL (4.0-5.2); WHITE BLOOD COUNT (AUTO) 7.6 K/uL (4.3-11.0)
[2020-06-02 06:08] LABS: CALCIUM, SERUM 8.5 mg/dL (8.5-10.1); CREATININE 1.2 mg/dL (0.6-1.3); MAGNESIUM 1.8 mg/dL (1.8-2.4); PHOSPHORUS 2.9 mg/dL (2.5-4.9); POTASSIUM 4.5 mmol/L (3.5-5.1)
[2020-06-02] MEDS: IV NS 0.9% 1,000 ML IV PRN ×2 (06:56→20:06)
--- NOTE | 2020-06-02 07:00 | NUR ---
RN OPENING NOTE RECEIVED PATIENT IN BED ASLEEP, APPEARS CALM WITH NO S/S OF DISTRESS. CURRENTLY ON ROOM AIR, TOLERATING WELL WITH NO S/S OF RESPIRATORY DISTRESS. AOX3 FARSI SPEAKING. PATIENT'S IS CURRENTLY INTACT, WITH PINK URINE OUTPUT. RFA MIDLINE RUNNING NS @80 ML/HR. NO SIGNS OF INFILTRATION OR INFECTION AT THIS TIME. SAFETY MEASURES MAINTAINED. CALL LIGHT WITHIN REACH. BED LOCKED AND IN LOWEST POSITION. WILL CONTINUE TO MONITOR.
--- NOTE | 2020-06-02 07:05 | NUR ---
RN CLOSING NOTES, Patient in bed sleeping at this time, arouses to verbal stimuli, at room air breathing even an unlabored, no sob/acute distress noted throughout the night, no significant Change in condition, will have debridement of sacral wound this morning, urban catheter in place still draining brown to dark red urine, patency intact, No co pain or discomfort, safety measures maintained, Call light within reach, will endorse to oncoming nurse for continuity of care.
--- NOTE | 2020-06-02 07:45 | NUR ---
BLOOD SUGAR WAS 40 AND 41 ON REPEAT. PATIENT IS ALERT AND AWAKE. EATING BREAKFAST. GAVE 8OZ ORANGE JUICE. INFORMED ALEJANDRA. ORDERED TO HOLD BLOOD GLUCOSE MEDS FOR NOW AND INSULIN COVERAGE. NOTED AND CARRIED OUT.
[2020-06-02] MEDS: BLOOD SUGAR DIAGNOSTIC 1 EACH STRIP VI SCH ×3 (07:56→21:57)
[2020-06-02 08:00] VITALS: BP 158/59
[2020-06-02] MEDS: METFORMIN 850 MG TABLET PO SCH ×2 (08:00→17:30)
[2020-06-02] MEDS: GLIMEPIRIDE 4 MG TABLET PO SCH ×2 (08:15→17:29)
[2020-06-02] MEDS: LINAGLIPTIN 5 MG TABLET PO SCH (08:15)
[2020-06-02] MEDS: TIMOLOL MAL/DORZOLAM HCL OPHTH 10 ML BOTTLE RIGHTEYE SCH ×2 (08:39→17:29)
[2020-06-02] MEDS: LOSARTAN/HCTZ 50-12.5MG/ 1 EA TABLET PO SCH (08:39)
[2020-06-02] MEDS: prednisoLONE ACETATE 1% SUSP 5 ML BOTTLE LEFTEYE SCH (08:39)
[2020-06-02] MEDS: MEGESTROL ACETATE 40 MG TABLET PO SCH (08:39)
[2020-06-02] MEDS: HYDROGEL DRESSING 90 GM TUBE TP SCH (08:40)
[2020-06-02] MEDS: FERROUS SULFATE (325 MG) 325 MG/TAB TABLET PO SCH (08:40)
[2020-06-02] MEDS: DOCUSATE SODIUM 100 MG CAPSULE PO SCH ×2 (08:40→17:29)
--- NOTE | 2020-06-02 10:30 | NUR ---
CONSENT FOR DEBRIDEMENT USED [employer] 3 TO TRANSLATE WITH PATIENT TO RECEIVE CONSENT FOR DEBRIDEMENT OF SACRAL WOUND. EXPLAINED PROCEDURE TO PATIENT. DURING THE CONVERSATION, SON WALKED IN UPSET THAT WE WERE USING THE PHONE TO TRANSLATE INSTEAD OF CALLING HIM TO. SON ENDED THE PHONE CONVERSATION WITH THE ADMINISTRATIVE FELLOW, INSISTING TO FINISH TRANSLATING HIMSELF.
[2020-06-02] MEDS ORDERED: SILVER NITRATE APPLICATOR 1 EA BOX TP ONE ×2 (14:00)
--- NOTE | 2020-06-02 14:03 | NUR ---
DEBRIDEMENT DONE ON SACRUM, TOLERATED WELL NO SIGNS OF BLEEDING. COVERED WITH DRY DRESSING. PATIENT COMPLAINED OF PAIN ON THE SACRUM. GAVE NORCO 5-325MG WILL CONT TO MONITOR.
[2020-06-02 16:00] VITALS: BP 161/50
--- NOTE | 2020-06-02 18:33 | NUR ---
RN CLOSING NOTES PATIENT IN BED RESTING WITH NO SIGNS OF DISTRESS. ON ROOM AIR, TOLERATING WELL. PATIENT IS AOX4, FARSI SPEAKING. HAS BREANNA MIDLINE RUNNING NS @80ML/HR. CATHETER IN PLACE, INTACT WITH TEA COLORED URINE OUTCOME. CONTINUE VITAL SIGNS WITHIN NORMAL LIMITS. STATED SHE FELT "LITTLE" PAIN ON HER BACK BUT REFUSED MEDICATION. SAFETY MEASURES MAINTAINED. CALL LIGHT WITHIN REACH. WILL ENDORSE TO STAKEHOLDER MANAGER.
[2020-06-02 20:00] VITALS: BP 136/85
--- NOTE | 2020-06-02 20:00 | NUR ---
RN NOTE RECEIVED PT IN THE BED RESTING. PT IS A/A/O X4.PT IS ON RA SATING ABOVE 95%, PT HAS UNLABORED BREATHING. PT HAS DRAINING YELLOW CLEAR URINE. PT HAS BREANNA MIDLINE NS RUNNING AT 80 ML/H. SAFETY MEASURE IN PLACE.
[2020-06-02] MEDS: TAMSULOSIN 0.4 MG CAP.SR.24H PO SCH (21:21)
[2020-06-02] MEDS: GABAPENTIN 300 MG CAPSULE PO SCH (21:23)
[2020-06-03 04:00] VITALS: BP 130/65
[2020-06-03] MEDS: AMOXICILLIN TRIHYDRATE 250 MG CAPSULE PO SCH ×3 (05:10→21:32)
[2020-06-03 06:05] LABS: BASOPHILS % (AUTO) 0.4 % (0.0-2.0); EOSINOPHILS % (AUTO) 2.3 % (0.0-6.0); HEMATOCRIT 24 % (33-45); HEMOGLOBIN 7.9 g/dL (11.5-14.8); LYMPHOCYTES # (AUTO) 1.9 /CMM (0.8-4.8); LYMPHOCYTES % (AUTO) 29.5 % (20.0-44.0); MEAN CORPUSCULAR HGB CONC 33 g/dl (31.0-36.0); MEAN CORPUSCULAR VOLUME 90 fL (82-100); MONOCYTES # (AUTO) 0.6 /CMM (0.1-1.30); NEUTROPHILS # (AUTO) 3.7 /CMM (1.8-8.9); NEUTROPHILS % (AUTO) 57.8 % (43.0-81.0); PLATELET COUNT (AUTO) 168 /CMM (150-450); RED BLOOD CELL COUNT(AUTO) 2.69 MIL/uL (4.0-5.2); WHITE BLOOD COUNT (AUTO) 6.4 K/uL (4.3-11.0)
[2020-06-03 06:09] LABS: CREATININE 1.1 mg/dL (0.6-1.3); MAGNESIUM 1.4 mg/dL (1.8-2.4); PHOSPHORUS 3.5 mg/dL (2.5-4.9); POTASSIUM 4.6 mmol/L (3.5-5.1)
[2020-06-03 06:41] LABS: CALCIUM, SERUM 8.6 mg/dL (8.5-10.1)
--- NOTE | 2020-06-03 07:07 | NUR ---
RN NOTE PT REMAINED STABLE DURING MY SHIFT, REPORT GIVEN TO INCOMING SHIFT FOR JONAS.
--- NOTE | 2020-06-03 07:15 | NUR ---
PT RECEIVED IN BED, ASLEEP BUT AROUSES TO VERBAL STIMULI, ALERT AND ORIENTED X 3, FARSI-SPEAKING. PT SON SEEN BRIEFLY AT BEDSIDE. PT ON RA O2 SATURATION 97%, NO SOB OR RESPIRATORY DISTRESS. PT HAS SACRAL WOUND, SACRAL DEBRIDEMENT PREVIOUSLY PERFORMED, CURRENTLY COVERED WITH MEPILEX. PT ON CONSISTENT CARB DIET, HAS ACCU-CHECKS. PER MANDOLIN REPAIRER ALEJANDRA, TO HOLD INSULIN COVERAGE DUE TO HYPOGLYCEMIA. PT HAS BREANNA MIDLINE IN PLACE RUNNING NS @ 80 ML/HR,NO SIGNS OF INFECTION OR INFILTRATION. PT IN BED LOCKED LOWEST POSITION, CALL LIGHT WITHIN REACH, ALL SAFETY MEASURES IN PLACE. WILL CONTINUE TO MONITOR CLOSELY.
[2020-06-03 08:00] VITALS: BP 149/65
[2020-06-03] MEDS: DOCUSATE SODIUM 100 MG CAPSULE PO SCH ×2 (08:15→16:39)
[2020-06-03] MEDS: LOSARTAN/HCTZ 50-12.5MG/ 1 EA TABLET PO SCH (08:16)
[2020-06-03] MEDS: METFORMIN 850 MG TABLET PO SCH ×2 (08:16→17:58)
[2020-06-03] MEDS: TIMOLOL MAL/DORZOLAM HCL OPHTH 10 ML BOTTLE RIGHTEYE SCH ×2 (08:16→16:40)
[2020-06-03] MEDS: FERROUS SULFATE (325 MG) 325 MG/TAB TABLET PO SCH (08:17)
[2020-06-03] MEDS: MEGESTROL ACETATE 40 MG TABLET PO SCH (08:17)
[2020-06-03] MEDS: LINAGLIPTIN 5 MG TABLET PO SCH (08:17)
[2020-06-03] MEDS: BLOOD SUGAR DIAGNOSTIC 1 EACH STRIP VI SCH ×4 (08:25→21:33)
[2020-06-03] MEDS: GLIMEPIRIDE 4 MG TABLET PO SCH ×2 (08:26→16:39)
[2020-06-03] MEDS ORDERED: MAGNESIUM OXIDE 400 MG TABLET PO ONE ×2 (08:30→11:30)
[2020-06-03] MEDS: prednisoLONE ACETATE 1% SUSP 5 ML BOTTLE LEFTEYE SCH (09:24)
[2020-06-03] MEDS: HYDROGEL DRESSING 90 GM TUBE TP SCH (09:37)
[2020-06-03] MEDS: IV NS 0.9% 1,000 ML IV PRN (09:47)
--- NOTE | 2020-06-03 12:10 | NUR ---
BS AT 1200 IS 339. NO INSULIN COVERAGE AT THIS TIME. STATIONARY EQUIPMENT MECHANIC ALEJANDRA NOTIFIED, AWAITING ORDERS
--- NOTE | 2020-06-03 12:20 | NUR ---
SHERLY ROBERTS ORDERS TO CONTINUE TO HOLD INSULIN COVERAGE. PROVIDE ORAL MEDS ONLY
[2020-06-03 16:00] VITALS: BP 139/72
[2020-06-03] MEDS: GLUCERNA SHAKE 237 ML CAN PO SCH (17:57)
--- NOTE | 2020-06-03 18:33 | NUR ---
PT REMAINS IN BED, EYES OPEN AND ALERT ORIENTED X 3. PT ON RA O2 SATURATION 96% NO RESPIRATORY DISTRESS OR SOB. SACRAL WOUND TX COMPLETED DIRECTED TODAY, NO BLEEDING. PT NOW ON CONSISTENT CARB DIET 60 GM. PT BREANNA MIDLINE IS SL, NO SIGNS OF INFECTION OR INFILTRATION. PT UNCHANGED DRAINING YELLOW CLEAR URINE, 1200 OUTPUT THIS SHIFT. NO BM THIS SHIFT. REPORT TO BE GIVEN TO ONCBRENDEN RN FOR JONAS Addendum: 06/03/20 at 1848 by CADEN PEREYRA RN BED IN LOCKED LOWEST POSITION, CALL LIGHT WITHIN REACH, ALL SAFETY MEASURE IN PLACE.
--- NOTE | 2020-06-03 19:25 | NUR ---
RN OPENING NOTES RECEIVED PT IN BED. RESTING. PT IS ALERT AND AWARE SHE IS IN THE HOSPITAL, SPEAKS PRIMARILY FARSI. SON HAS BEEN INVOLVED IN CARE AND UTILIZED FOR TRANSLATION. PT IS COOPERATIVE WITH CARE. PT IS ON ROOM AIR TOLERATING WELL. NO SIGNS OR SYMPTOMS OF SOB OR RESP DISTRESS. NO SIGNS OF DIFFICULTY BREATHING. PT HAS RIGHT UPPER ARM MIDLINE DRESSING CLEAN DRY INTACT, IV LINE FLUSHED ASEPTICALLY. PT HAS F/C DRAINING LIGHT YELLOW URINE, CLEAR FREE OF SEDIMENT. PT DENIES PAIN AT THIS TIME. BED IS LOCKED IN LOWEST POSITION AT THIS TIME WILL CONTINUE TO MONITOR.
[2020-06-03 20:00] VITALS: BP 145/73
[2020-06-03] MEDS: GABAPENTIN 300 MG CAPSULE PO SCH (21:33)
[2020-06-03] MEDS: TAMSULOSIN 0.4 MG CAP.SR.24H PO SCH (21:33)
--- NOTE | 2020-06-03 22:45 | NUR ---
PT BLOOD SUGAR IS 240 AT THIS TIME. ENDORSED BY DAY SHIFT RN, NO INSULIN COVERAGE PER MD ROBERTS DUE TO PT BEING SENSITIVE TO INSULIN COVERAGE. PT STILL SCHEDULED FOR ORAL MEDICATIONS. Addendum: 06/03/20 at 2321 by LUDIVINA STEPHENS RN CHARGE NURSE MADE AWARE
--- NOTE | 2020-06-03 23:18 | NUR ---
PT REFUSES BED BATH FOR TONIGHT, EXPLAINED IMPORTANCE RISKS AND BENEFITS X3 PT STILL REFUSED. PT CONSIDERS BED BATH/CLEANING AND LINEN CHANGE TOMORROW AFTERNOON.
[2020-06-04 04:00] VITALS: BP 149/67
[2020-06-04] MEDS: AMOXICILLIN TRIHYDRATE 250 MG CAPSULE PO SCH ×2 (05:43→12:31)
--- NOTE | 2020-06-04 05:50 | NUR ---
PT REFUSED ABX THIS MORNING. INSISTED ON WAITING UNTIL BREAKFAST. EXPLAINED RISKS AND BENEFITS, PT STILL DECLINED. CHARGE NURSE MADE AWARE, WILL ENDORSE TO AM SHIFT NURSE.
[2020-06-04 06:46] LABS: BASOPHILS % (AUTO) 0.3 % (0.0-2.0); EOSINOPHILS % (AUTO) 2.5 % (0.0-6.0); HEMATOCRIT 25 % (33-45); LYMPHOCYTES # (AUTO) 1.8 /CMM (0.8-4.8); LYMPHOCYTES % (AUTO) 25.5 % (20.0-44.0); MEAN CORPUSCULAR HGB CONC 33 g/dl (31.0-36.0); MEAN CORPUSCULAR VOLUME 91 fL (82-100); MONOCYTES # (AUTO) 0.7 /CMM (0.1-1.30); MONOCYTES % (AUTO) 9.6 % (2.0-12.0); NEUTROPHILS # (AUTO) 4.3 /CMM (1.8-8.9); NEUTROPHILS % (AUTO) 62.1 % (43.0-81.0); PLATELET COUNT (AUTO) 176 /CMM (150-450); RED BLOOD CELL COUNT(AUTO) 2.69 MIL/uL (4.0-5.2)
--- NOTE | 2020-06-04 06:47 | NUR ---
RN CLOSING NOTES PT IS RESTING IN BED. PT SLEPT WELL THROUGHOUT THE NIGHT, NO SIGNIFICANT CHANGES ASIDE FROM REFUSING ABX AT THIS TIME. STILL ON ROOM AIR TOLERATING WELL. NO SOB OR RESPIRATORY DISTRESS NOTED, NO DIFFICULTY BREATHING, PT DENIES PAIN AT THIS TIME. NO BM NOTED. SAFETY MEASURES IN PLACE. PT HOB ELEVATED. BED IS LOCKED IN LOWEST POSITION WITH BED ALARM ON. CALL LIGHT WITHIN REACH. WILL ENDORSE TO ONCOMING NURSE FOR CONTINUATION OF CARE.
[2020-06-04 07:32] LABS: ALBUMIN 2.5 g/dL (3.4-5.0); BILIRUBIN,TOTAL 0.1 mg/dL (0.2-1.0); CALCIUM, SERUM 9.4 mg/dL (8.5-10.1); CREATININE 1.2 mg/dL (0.6-1.3); MAGNESIUM 1.5 mg/dL (1.8-2.4); PHOSPHORUS 3.2 mg/dL (2.5-4.9); POTASSIUM 4.5 mmol/L (3.5-5.1)
[2020-06-04] MEDS: BLOOD SUGAR DIAGNOSTIC 1 EACH STRIP VI SCH ×3 (07:51→17:30)
--- NOTE | 2020-06-04 07:51 | NUR ---
MS/RN OPENING NOTES RECEIVED PATIENT ON BED, AWAKE ALERT AND ORIENTED X 3.PATIENT IN NO APPARENT RESPIRATORY DISTRESS NOTED. NO COMPLAINED OF PAIN NOTED AT THIS TIME. PATIENT BLOOD SUGAR 62MG/DL, ORANGE JUICE 240 ML WAS GIVEN. WILL CONTINUE TO MONITOR.
[2020-06-04] MEDS: LOSARTAN/HCTZ 50-12.5MG/ 1 EA TABLET PO SCH (08:33)
[2020-06-04] MEDS: FERROUS SULFATE (325 MG) 325 MG/TAB TABLET PO SCH (08:33)
[2020-06-04] MEDS: METFORMIN 850 MG TABLET PO SCH ×2 (08:34→18:06)
[2020-06-04] MEDS: LINAGLIPTIN 5 MG TABLET PO SCH (08:34)
[2020-06-04] MEDS: DOCUSATE SODIUM 100 MG CAPSULE PO SCH ×2 (08:34→18:07)
[2020-06-04] MEDS: MEGESTROL ACETATE 40 MG TABLET PO SCH (08:34)
[2020-06-04] MEDS: prednisoLONE ACETATE 1% SUSP 5 ML BOTTLE LEFTEYE SCH (08:37)
[2020-06-04] MEDS: GLIMEPIRIDE 4 MG TABLET PO SCH ×2 (08:37→18:07)
[2020-06-04] MEDS: TIMOLOL MAL/DORZOLAM HCL OPHTH 10 ML BOTTLE RIGHTEYE SCH ×2 (08:38→18:10)
[2020-06-04] MEDS: GLUCERNA SHAKE 237 ML CAN PO SCH (08:44)
[2020-06-04] MEDS: HYDROGEL DRESSING 90 GM TUBE TP SCH (08:46)
--- NOTE | 2020-06-04 08:52 | NUR ---
MS/RN NOTES RECHECKED BS 162MG/DL
[2020-06-04] MEDS: Magnesium 1GM/D5W 100ML PREMIX 100 ML IV SCH ×2 (10:04→11:19)
[2020-06-04] MEDS ORDERED: AMOX250C PO (10:48)
[2020-06-04] MEDS ORDERED: METF-441 PO (10:48)
[2020-06-04 12:00] VITALS: BP 139/69
--- NOTE | 2020-06-04 19:00 | NUR ---
RN MED SURG1 GAVE REPORT TO EMANI AT [facility], ANSWERED ALL QUESTIONS AND PROVIDED ALL PATIENT INFORMATION. PROVIDED CONTACT INFORMATION IF THEY HAVE FURTHER QUESTIONS.
--- NOTE | 2020-06-04 19:30 | NUR ---
RN MED SURG1 PATIENT PICKED UP BY TRANSPORT, ZABRINA MORRISSEY RECEIVED REPORT, [facility] [employer]. VITALS WERE STABLE, PICTURE OF SACRAL WOUND PLACED IN CHART, NO S/S OF DISTRESS, ACCOMPANIED BY SON LEMUEL. MIDLINE WAS REMOVED WITH NO SIGNS OF EXCESSIVE BLEEDING. PROVIDED CONTACT INFORMATION TO [facility] IF THEY HAVE FOLLOW UP QUESTIONS.
== END 2020-06-04 19:49 | DRG 673 ==
LOC: ER 14:35 → MEDSG1 17:42
PROVIDERS: ADMIT Internal Medicine; ATTEND Nurse Practitioner Acute Care
PROC: 05HY33Z Insertion of Infusion Device into Upper Vein, Percutaneous Approach (ICD-10-PCS; 2020-06-01)
PROC: 0JB70ZZ Excision of Back Subcutaneous Tissue and Fascia, Open Approach (ICD-10-PCS; principal; 2020-06-02)
DX: N13.6 Pyonephrosis (principal); L89.153 Pressure ulcer of sacral region, stage 3; G93.41 Metabolic encephalopathy; N17.0 Acute kidney failure with tubular necrosis; R31.9 Hematuria, unspecified; K59.00 Constipation, unspecified; I12.9 Hypertensive chronic kidney disease with stage 1 through stage 4 chronic kidney disease, or unspecified chronic kidney disease; D63.8 Anemia in other chronic diseases classified elsewhere; E87.6 Hypokalemia; H54.61 Unqualified visual loss, right eye, normal vision left eye; N18.9 Chronic kidney disease, unspecified; E11.22 Type 2 diabetes mellitus with diabetic chronic kidney disease; Z79.84 Long term (current) use of oral hypoglycemic drugs; Z83.3 Family history of diabetes mellitus; B96.20 Unspecified Escherichia coli [E. coli] as the cause of diseases classified elsewhere; B95.2 Enterococcus as the cause of diseases classified elsewhere; B96.1 Klebsiella pneumoniae [K. pneumoniae] as the cause of diseases classified elsewhere; N93.9 Abnormal uterine and vaginal bleeding, unspecified; R53.1 Weakness; R33.9 Retention of urine, unspecified
CPT/HCPCS: 36410; 36415; 74018; 76770-TC; 80048-TC; 80053-TC; 80061-TC; 80076-TC; 81001; 82550-TC; 82570-TC; 82962-TC; 83735-TC; 83970; 84100-TC; 84155; 84155-TC; 84165; 84300-TC; 85025-TC; 85610-TC; 85730-TC; 86850-TC; 87081-TC; 87086-TC; 87186-TC; 97112-TC; 97116-TC; 97530-TC; A6248; A6253; A6403; A6407; G0378; J0696; J1815; J3475; J7030; J7060